=== PATIENT | female | born 1945 | race Caucasian/White ===

== ENCOUNTER 2019-08-16 12:39 | Outpatient (CLI) | payer MEDICARE, OTHER, SELFPAY ==
--- NOTE | ~2019-08-16 | NM_ITS ---
EXAMINATION: NM parathyroid w imaging DATE: 08/16/2019 15:46 INDICATION: Hypercalcemia. TECHNIQUE: 20.7 mCi Tc99m sestamibi was administered intravenously. Anterior images of the neck were obtained immediately and at 2 hours. SPECT images of the neck were obtained. COMPARISON: Chest CT 07/02/2015 FINDINGS: There is no focus of persistent activity in the area of the thyroid or mediastinum to sugge st parathyroid adenoma. IMPRESSION: 1. No evidence of a parathyroid adenoma. Reviewed, dictated and finalized at location A. O CALLER
== END 2019-08-16 12:40 | disposition home or self-care (01) ==
LOC: ANHIMG 12:42
PROVIDERS: PCP Family Medicine; Visit Provider Internal Medicine Endocrinology, Diabetes & Metabolism
DX: E83.52 Hypercalcemia (principal)
CPT/HCPCS: 78070; A9500

== ENCOUNTER 2019-08-28 16:37 | Inpatient (IN) | payer MEDICARE, OTHER, SELFPAY ==
[2019-08-28 16:41] VITALS: BP 151/86; PULSE 119; RESP 21; TEMP 36.4; O2SAT 100
[2019-08-28 16:57] LABS: Basophils Absolute Auto 0.1 K/mm3 (0.0-0.1); Basophils Percent Auto 0.8 % (0.2-1.2); Eosinophils Absolute Auto 0.5 K/mm3 (0-0.3); Eosinophils Percent Auto 3.3 % (0-4.4); Hematocrit 31.1 % (37.0-47.0); Hemoglobin 9.6 g/dL (12.0-15.0); Immature Granulocyte Absolute 0.16 K/mm3 (0.00-0.031); Immature Granulocyte Percent A 1.1 % (0-0.5); Lymphocytes Absolute Auto 3.38 K/mm3 (0.9-3.2); Lymphocytes Percent Auto 22.5 % (18.3-44.2); Mean Corpuscular HGB Conc 30.9 g/dl (32-36); Mean Corpuscular Hemoglobin 29.2 pg (26-34); Mean Corpuscular Volume 94.5 fl (80-100); Mean Platelet Volume 10.5 fl (7.4-10.4); Monocytes Absolute Auto 1.1 K/mm3 (0.1-0.6); Monocytes Percent Auto 7.1 % (2.6-8.5); Neutrophils Absolute Auto 9.8 K/mm3 (1.3-6.7); Neutrophils Percent Auto 65.2 % (45.5-73.1); Platelet Count Result 483 k/mm3 (150-375); Red Blood Count 3.29 M/mm3 (4.2-5.4); Red Cell Distribution Width 15.7 % (11.5-14.5)
[2019-08-28 17:06] LABS: INR 0.9; Prothrombin Time 12.1 Seconds (11.1-14.7)
[2019-08-28 17:07] LABS: Partial Thromboplastin Time 35.2 SECONDS (22.3-36.8)
[2019-08-28 17:12] LABS: Alanine Aminotransferase 13 U/L (4-35); Albumin Level 4.2 g/dL (3.5-5.1); Alkaline Phosphatase 49 U/L (38-126); Aspartate Amino Transferase 33 U/L (14-36); Bilirubin,Total 0.3 mg/dL (0.2-1.3); Blood Urea Nitrogen 22 mg/dL (7-17); Calcium 10.1 mg/dL (8.4-10.2); Carbon Dioxide 26 mmol/L (22-30); Chloride 102 mmol/L (98-107); Estimated CRCL calculation 61 ml/min; Estimated Glomerular Filt Rate > 60; Glucose 110 mg/dL (65-105); Potassium 3.2 mmol/L (3.4-5.0); Sodium 142 mmol/L (137-145)
--- NOTE | 2019-08-28 17:16 | ED.GENADULT ---
HPI - General Adult General Chief complaint: Nausea/Vomiting/Diarrhea Stated complaint: Black Stool Time Seen by Provider: 08/28/19 16:39 History of Present Illness HPI narrative: Patient is a 74-year-old female who presents the ER with weakness and dark stools. Last dark stool was 4 days ago. She has been feeling more fatigued over the last week. Today she developed dizziness when going from sitting to standing. She is not on any blood thinners but she does take a baby aspirin daily. No increase in acid reflux symptoms. She has no nausea/vomiting. Has a history of GI bleed in the past that required blood transfusion. No alleviating factors. She has not been taking iron or Pepto-Bismol. Related Data Home Medications Medication Instructions Recorded Confirmed acetaminophen 650 mg 650 mg PO Q12H 07/09/19 07/12/19 tablet,extended release aspirin 81 mg tablet,delayed 81 mg PO DAILY 07/09/19 07/12/19 release benzonatate 100 mg capsule 100 mg PO BID 07/09/19 07/12/19 carbidopa 25 mg-levodopa 100 mg 2 tablet PO BID 07/09/19 07/12/19 tablet vit C,E,zinc,copper-bqnzt5y 250 1 cap PO DAILY 07/09/19 07/12/19 mg-lutein 5 mg-zeaxanthin 1 mg capsule diclofenac sodium PO 08/28/19 Allergies Allergy/AdvReac Type Severity Reaction Status Date / Time hydroxyurea Allergy Intermediate Dizziness Verified 08/28/19 18:33 allopurinol Allergy Unknown Anaphylactic Verified 08/28/19 18:33 Shock Review of Systems Review of Systems: All systems reviewed & are unremarkable except as noted in HPI and below Constitutional: Constitutional: Denies chills, Reports fatigue, Denies fever(s) and Reports weakness ENT: Denies vertigo, Reports dizziness and Denies sore throat Cardiovascular: Cardiovascular: Denies chest pain and Denies rapid heart rate Respiratory: Respiratory: Denies cough, Denies dyspnea and Denies wheezing Gastrointestinal: Gastrointestinal: Denies abdominal pain, Reports constipation, Denies heartburn, Denies nausea and Denies vomiting Comments: black stools Neurologic: Reports dizziness, Denies syncope and Denies headache(s) [facility] Past Medical History Medical History (Updated 08/28/19 @ 19:40 by Dean Agrawal MD) Arthritis Back pain Cataracts, bilateral COPD (chronic obstructive pulmonary disease) Depressed Hypertension Obesity Thrombocytosis Thyroid disease Visual loss Surgical History Surgical History (Updated 08/28/19 @ 17:22 by Dean Agrawal MD) History of hysterectomy Family History Family History (Updated 07/09/19 @ 13:35 by Daniela Alford CMA) Other Acute leukemia Cerebrovascular accident Prostate disease Social History Social History Smoking status: Former smoker Second hand tobacco smoke exposure: No Smoking end date: 07/18/90 Alcohol intake: current Gender identity (if verbalized by the patient): Female Exam Narrative: Exam Narrative: GENERAL: Well-appearing, well-nourished, and in no acute distress. HEAD: Normocephalic, atraumatic. EYES: PERRL and EOMI. right eye strabismus. Normal conjunctiva. ENT: Mucous membranes moist. CHEST: Clear to auscultation. No respiratory distress. HEART: Tachycardic and regular. Normal peripheral pulses. ABDOMEN: Soft, nontender, nondistended, heme positive stool on guaiac. EXTREMITIES: Normal range of motion. No edema. SKIN: Warm, dry, no rash. NEURO: Alert and oriented x3. Course Course Emergency Course: Admit for obs, will consult Dr. Larose in the morning who has see her in the past. Trend h/h. Vital Signs Vital signs: Vital Signs Temperature 97.6 F 08/28/19 16:41 Pulse Rate 119 H 08/28/19 16:41 Respiratory Rate 21 H 08/28/19 16:41 Blood Pressure 151/86 H 08/28/19 16:41 Pulse Oximetry 100 08/28/19 16:41 Temperature 98.1 F 08/28/19 18:41 Pulse Rate 80 08/28/19 18:41 Respiratory Rate 14 08/28/19 18:41 Blood Pressure 121/67 08/28/19 18:41 Pulse Oximetry 99 0
[2019-08-28] MEDS: SODIUM CHLORIDE 0.9% IV 1,000 ML 999 ML IV CONT (18:12)
[2019-08-28 18:15] VITALS: BP 113/60; BP 120/80; PULSE 103; PULSE 84
[2019-08-28 18:17] VITALS: BP 124/72; PULSE 110
[2019-08-28 18:41] VITALS: BP 121/67; PULSE 80; RESP 14; TEMP 36.7; O2SAT 99
[2019-08-28 20:25] VITALS: BP 131/74; PULSE 84; RESP 14; TEMP 36.3; O2SAT 100; BMI 37.1
[2019-08-28 20:57] LABS: Hemoglobin 9.7 g/dL (12.0-15.0)
[2019-08-28 22:00] VITALS: BP 123/67; PULSE 80; RESP 14; TEMP 36.9; O2SAT 98
--- NOTE | 2019-08-28 23:00 | PM.IMHP ---
H&P: HPI History of Present Illness Chief complaint: Dark stool and dizziness. Narrative: Leann Mccauley is a very pleasant 74-year-old female with history of GI bleed due to gastric ulcer who presented to the emergency department earlier this afternoon via private vehicle from home for evaluation after a dark stool 4 days ago and dizziness. Her bowels are typically irregular, and she notes having a large loose, dark stool 4 days ago after several days of not having a bowel movement. She has not had a bowel movement since that time, but has noticed increasing lightheadedness and dizziness upon standing and walking. She had similar symptoms with her previous gastric ulcer, and felt it would be best to come in today due to continued lightheadedness. It is noted that her hemoglobin on routine outpatient labs last month was 14.5, and was 9.6 on presentation to the ER today. She has not had symptoms of indigestion or GERD. No abdominal or epigastric discomfort. She denies nausea and vomiting. She does take diclofenac once a day for her arthritic pain, and also takes a baby aspirin daily. She does not take iron supplementations and has not taken Pepto-Bismol. She tries to drink non caffeinated beverages. She rarely drinks alcohol. Review of Systems Review of Systems: Narrative: Twelve systems were reviewed with pertinent positives and negatives as per HPI. No fever, chills, or sweats. No recent cold or flu-like symptoms. She had always has clear rhinorrhea, and that is unchanged. She suffers from osteoarthritic pain, mainly in her back and knees and that is why she takes the diclofenac. Except as documented, all other systems were reviewed and are negative. [facility] Past Medical History Medical History (Updated 08/29/19 @ 01:44 by Genesis Mendez PA-C) Arthritis Back pain Cataracts, bilateral COPD (chronic obstructive pulmonary disease) Depression Gastric ulcer In November 2002. Hypertension No longer requiring medication. Hypothyroidism Obstructive sleep apnea Restless leg syndrome Thrombocytosis Treated by Dr. White. She was on allopurinol and hydroxyurea but developed anaphylactic shock attributed to those medications in March 2019. 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 Surgical History Surgical History (Updated 08/29/19 @ 01:41 by Genesis G. Gerling, PA-C) Status post eye surgery Right eye surgery at the age of 13 after a sinus infection eroded into the orbit. Status post tubal ligation Family History Family History Other Acute leukemia Cerebrovascular accident Prostate disease Social History Social History (Updated 08/29/19 @ 01:42 by Genesis Mendez PA-C) Social History: The patient is single and lives in [place]. She was for about 3 years many years ago. She does have a cat that lives at home with her named Macrina. She has no children. She designates her brother Bill or her cousin Bronson as her surrogate decision makers and she wishes to be a full code. 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 She smokes 1 to 1.5 packs of cigarettes per day and quit in 1990. No alcohol or drug abuse. Spiritual care concerns: No Agree to blood products: Yes Meds Home Medications and Allergies Home Medications Medication Instructions Recorded Confirmed Type acetaminophen 650 mg 650 mg PO Q6-8H PRN 07/09/19 08/28/19 History tablet,extended release aspirin 81 mg tablet,delayed 81 mg PO DAILY 07/09/19 07/12/19 History release benzonatate 100 mg capsule 100 mg PO BID PRN 07/09/19 07/12/19 History carbidopa 25 mg-levodopa 100 mg 2 tablet PO HS 07/09/19 08/28/19 History tablet vit C,E,zinc,copper-bykag1z 250 1 cap PO DAILY 07/09/19 07/12/19 History mg-lutein 5 mg-zeaxanthin 1 mg capsule levothyroxine 75 mcg tablet 75 mcg PO DAILY #9
[2019-08-29] VITALS (9 sets, daily range): BP systolic 131–148; BP diastolic 66–81; PULSE 70–90; RESP 16–18; TEMP 36.6–37.3; O2SAT 95–96
--- NOTE | 2019-08-29 00:05 | ADMGEN ---
This patient, Leann Mccauley, was admitted to 3 [facility] Surg Room 330-01. Patient/family oriented to hospital policies and general routines including ID bracelet, bed and alarms, visiting hours, pain management, procedures, bathroom and other care routines, personal items, smoking policy, room service/diet, and visiting hours. Valuables list has been completed. Information on how to activate the Rapid Response Team has been discussed. Patient/Family are encouraged to report perceived risks to care and to ask questions if they do not understand what they are told or what they should do.
[2019-08-29] MEDS: SODIUM CHLORIDE 0.9% IV 1,000 ML 125 ML IV CONT (00:17)
[2019-08-29 00:40] LABS: Hematocrit 26.7 % (37.0-47.0); Hemoglobin 8.4 g/dL (12.0-15.0); Mean Corpuscular HGB Conc 31.5 g/dl (32-36); Mean Corpuscular Hemoglobin 29.3 pg (26-34); Mean Platelet Volume 10.6 fl (7.4-10.4); Platelet Count Result 382 k/mm3 (150-375); Red Blood Count 2.87 M/mm3 (4.2-5.4); Red Cell Distribution Width 15.9 % (11.5-14.5); White Blood Count 11.4 K/mm3 (4.5-10.0)
[2019-08-29 00:45] LABS: Blood Urea Nitrogen 17 mg/dL (7-17); Calcium 9.4 mg/dL (8.4-10.2); Carbon Dioxide 25 mmol/L (22-30); Chloride 106 mmol/L (98-107); Estimated CRCL calculation 62 ml/min; Estimated Glomerular Filt Rate > 60; Glucose 91 mg/dL (65-105); Potassium 3.4 mmol/L (3.4-5.0); Sodium 141 mmol/L (137-145)
[2019-08-29] MEDS: CARBIDOPA/LEVODOPA 25/100 MG TABLET 2 TABLET PO ×2 (02:47→19:56)
[2019-08-29] MEDS: ATORVASTATIN 10 MG TABLET PO ×2 (02:48→19:55)
[2019-08-29] MEDS: LEVOTHYROXINE SODIUM 75 MCG TABLET PO (06:29)
[2019-08-29 06:36] LABS: Hematocrit 25.9 % (37.0-47.0)
[2019-08-29] MEDS: OPTI-GEN TAB 1 TABLET PO (09:21)
[2019-08-29] MEDS: PANTOPRAZOLE SODIUM IV 40 MG VIAL IV PUSH ×2 (09:21→19:59)
[2019-08-29] MEDS: POTASSIUM CHLORIDE 20 MEQ TABLET 40 MEQ PO (09:21)
[2019-08-29] MEDS: VENLAFAXINE HCL XR 75 MG CAP.ER.24H 225 MG PO (09:21)
--- NOTE | 2019-08-29 11:07 | WPDGICN ---
Assessment and Plan Additional Plan This is a 74-year-old white female patient mass see for GI bleeding. Patient reports she was in her usual state of health till Tuesday when she felt somewhat lightheaded. On Tuesday she passed a dark melenic stool. Because of persistent lightheadedness she presented to the emergency room yesterday for evaluation. She was bout found to be anemic with a hemoglobin of 8 in July her hemoglobin had been normal at 14. Patient denies any abdominal pain. She reports having a prior gastric ulcer in 2012. She did experience melenic stools 1 year ago in EGD revealed distal esophageal web. At that time Patient's recent history is significant for slightly elevated platelet count was briefly on Hydrea. Past medical history is significant for chronic back pain and knee pain for which she takes diclofenac. She also has a history of depression. Gastric ulcer in 2012, hypertension, hypothyroidism, sleep apnea. Family history is noncontributory. Social history she denies alcohol use. Physical exam reveals her to be alert. Vital signs stable. HEENT exam unremarkable. She is anicteric. Lungs are clear to auscultation and percussion. Heart is without murmur or extra sounds. Abdominal exam bowel sounds present soft nontender with no hepatosplenomegaly. Stool in the emergency room is confirmed to be Hemoccult positive. Laboratory reports on presentation to 11 hemoglobin 9.6 hematocrit 31.1, this morning hemoglobin 8.0 hematocrit 25.9. Impression 1. GI bleeding. 2. Melenic stools. Suggests the GI bleeding is upper GI source. Patient does have a history of gastric ulcer and recently has been on diclofenac. 3. Chronic back pain. 4. COPD. Plan is for IV rehydration. Maintain patient on proton pump inhibitor. This may be required particularly if she requires arthritis medications. An EGD will be planned in the morning. Hemoglobin will be monitored closely in the antrum. GI Consult Note Consult date/time: 08/29/19 11:07 HPI: Leann Mccauley is a 74 year old female [facility] Past Medical History Medical History (Updated 08/29/19 @ 01:44 by Genesis Mendez PA-C) Arthritis Back pain Cataracts, bilateral COPD (chronic obstructive pulmonary disease) Depression Gastric ulcer In November 2002. Hypertension No longer requiring medication. Hypothyroidism Obstructive sleep apnea Restless leg syndrome Thrombocytosis Treated by Dr. White. She was on allopurinol and hydroxyurea but developed anaphylactic shock attributed to those medications in March 2019. 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 Surgical History Surgical History (Updated 08/29/19 @ 01:41 by Genesis Mendez PA-C) Status post eye surgery Right eye surgery at the age of 13 after a sinus infection eroded into the orbit. Status post tubal ligation Family History Family History Other Acute leukemia Cerebrovascular accident Prostate disease Social History Social History (Updated 08/29/19 @ 01:42 by Genesis Mendez PA-C) Social History: The patient is single and lives in [place]. She was for about 3 years many years ago. She does have a cat that lives at home with her named Macrina. She has no children. She designates her brother Bill or her cousin Bronson as her surrogate decision makers and she wishes to be a full code. 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 She smokes 1 to 1.5 packs of cigarettes per day and quit in 1990. No alcohol or drug abuse. Spiritual care concerns: No Agree to blood products: Yes Meds Home Medications and Allergies Home Medications Medication Instructions Recorded Confirmed Type acetaminophen 650 mg 650 mg PO Q6-8H PRN 07/09/19 08/28/19 History tablet,extended release aspirin 81 mg tablet,delayed 81 mg PO DAILY 12
[2019-08-29 14:04] LABS: Hematocrit 26.1 % (37.0-47.0); Hemoglobin 8.1 g/dL (12.0-15.0)
--- NOTE | 2019-08-29 15:38 | PM.IMPN ---
Progress Note: A&P Assessment and Plan (1) GI bleed: Code(s): K92.2 - Gastrointestinal hemorrhage, unspecified Status: Acute Assessment and Plan: Per ED physician, stool was Hemoccult positive. Presumed upper GI bleed given reports of melena. Will continue Protonix twice daily given her history of gastric ulcer. Hold aspirin and diclofenac. Dr. Larose following and appreciate recommendations (2) Restless leg syndrome: Code(s): G25.81 - Restless legs syndrome Status: Acute Assessment and Plan: Continue carbidopa levodopa. (3) Hypothyroidism: Code(s): E03.9 - Hypothyroidism, unspecified Status: Acute Assessment and Plan: Continue levothyroxine. (4) Arthritis: Code(s): M19.90 - Unspecified osteoarthritis, unspecified site Status: Acute Assessment and Plan: Hold diclofenac given GI bleed. Subjective Date/time seen: 08/29/19 15:38 Interval history: Patient is a 74 yo F with history of previous GI bleed due to gastric ulcer who is here for another GI bleed. Today, patient states she is feeling okay. She had a slight headache today but she relates this to not sleeping that much last night. No BM today but notes she will likely have one this evening. She has no other complaints. Denies f/c/ns, dizziness, lightheadedness, changes in v/h, cp/palpitations, sob/cough, n/v/d/c, abd pain, dysphagia, melena, brbpr, dysuria, hematuria, cloudy urine, calf pain/swelling, s/sx of stroke. Review of Systems Review of Systems: All systems reviewed & are unremarkable except as noted in HPI and below Exam Narrative: Exam Narrative: Patient lying in semi-fowlers position at time of visit Const: General: comfortable, no acute distress, well developed and alert Nutritional Appearance: obese Orientation/consciousness: patient oriented x3 HENMT: Head: normocephalic and atraumatic Ears: external ears normal General nose exam: Normal nares present Face and sinus: face symmetric Mouth: Yes tongue normal and Yes moist mucous membranes Teeth and gingiva: fair dentition Throat: posterior oropharynx normal and uvula midline Eyes: Sclera: sclerae normal Pupils: Equal, round and reactive pupils present EOM: EOMs intact bilaterally Neck: Neck: trachea midline, supple and no JVD Resp: Effort & Inspection: normal respiratory effort Auscultation: wheezes expiratory wheezes (mild scattered wheezes) Cardio: Rate: regular rate Rhythm: regular rhythm Heart sounds: no murmurs GI: Inspection: non-distended and obesity GI Palp: No abdominal tenderness Auscultation: normal bowel sounds and normoactive bowel sounds Skin: General skin exam: normal color and no rashes or lesions noted Neuro: General: patient oriented x3 and no focal motor deficits Speech: normal speech Motor exam (neuro): 5/5 motor strength present throughout Extrem: Right lower extremity: no edema Left lower extremity: no edema Other: no calf ttp/swelling Psych: Mental Status: mental status grossly normal Affect: normal affect Objective Data Vital Signs Vital Signs: Vital Signs - 24 hr 08/28/19 16:41 08/28/19 18:15 08/28/19 18:17 Temperature 97.6 F Pulse Rate 119 H 103 H 110 H Respiratory Rate 21 H Blood Pressure 151/86 H 120/80 124/72 Pulse Oximetry 100 08/28/19 18:41 08/28/19 20:25 08/28/19 22:00 Temperature 98.1 F 97.3 F L 98.4 F Pulse Rate 80 84 80 Respiratory Rate 14 14 14 Blood Pressure 121/67 131/74 123/67 Pulse Oximetry 99 100 98 08/29/19 00:00 08/29/19 04:00 08/29/19 06:00 Temperature 99.1 F Pulse Rate 80 78 90 Respiratory Rate 16 Blood Pressure 131/66 Pulse Oximetry 95 08/29/19 08:00 08/29/19 12:00 08/29/19 14:00 Temperature 97.8 F Pulse Rate 80 70 72 Respiratory Rate 18 Blood Pres
[2019-08-30] VITALS (12 sets, daily range): BP systolic 75–157; BP diastolic 47–86; PULSE 58–90; RESP 16–19; TEMP 36.4–36.7; O2SAT 95–99
[2019-08-30 06:07] LABS: Hematocrit 25.1 % (37.0-47.0); Mean Corpuscular HGB Conc 31.9 g/dl (32-36); Mean Corpuscular Hemoglobin 29.4 pg (26-34); Mean Corpuscular Volume 92.3 fl (80-100); Mean Platelet Volume 10.7 fl (7.4-10.4); Platelet Count Result 351 k/mm3 (150-375); Red Blood Count 2.72 M/mm3 (4.2-5.4); Red Cell Distribution Width 15.9 % (11.5-14.5); White Blood Count 10.1 K/mm3 (4.5-10.0)
[2019-08-30 06:31] LABS: Blood Urea Nitrogen 10 mg/dL (7-17); Calcium 9.6 mg/dL (8.4-10.2); Carbon Dioxide 25 mmol/L (22-30); Chloride 104 mmol/L (98-107); Estimated CRCL calculation 62 ml/min; Estimated Glomerular Filt Rate > 60; Glucose 84 mg/dL (65-105); Magnesium 1.9 mg/dL (1.6-2.3); Potassium 3.6 mmol/L (3.4-5.0); Sodium 138 mmol/L (137-145)
[2019-08-30] MEDS: OPTI-GEN TAB 1 TABLET PO (08:21)
[2019-08-30] MEDS: VENLAFAXINE HCL XR 75 MG CAP.ER.24H 225 MG PO (08:21)
[2019-08-30] MEDS: LEVOTHYROXINE SODIUM 75 MCG TABLET PO (08:22)
[2019-08-30] MEDS: PANTOPRAZOLE SODIUM IV 40 MG VIAL IV PUSH (08:22)
[2019-08-30] MEDS: LACTATED RINGERS 1,000 ML 150 ML IV CONT (11:08)
--- NOTE | 2019-08-30 11:13 | PC.NURSE ---
To GI Lab per [ stretcher], IV [saline locked ]
--- NOTE | 2019-08-30 11:48 | WPDANESEPPF ---
Anes - Initial Pre Proc Eval Procedure: Operation Date: 08/30/19 11:30 Proposed Procedures p Esophagogastroduodenoscopy - Yoandy Larose MD Date/Time: 08/30/19 11:48 Surgeon: Renny Mendieta PA-C Pre Op Diagnosis: Dark stool and dizziness. Patient Data Age: 74 Gender: F Height: 5 ft 4 in Weight: 98.2 kg Last Vital Signs Temp 97.5 F L 08/30/19 11:09 Pulse 66 08/30/19 11:09 Resp 16 08/30/19 11:09 BP 132/66 08/30/19 11:09 Pulse Ox 98 08/30/19 11:09 Allergies Allergy/AdvReac Type Severity Reaction Status Date / Time hydroxyurea Allergy Intermediate Dizziness Verified 08/28/19 18:33 allopurinol Allergy Unknown Anaphylactic Verified 08/28/19 18:33 Shock Home Medications Medication Instructions Recorded Confirmed Type acetaminophen 650 mg 650 mg PO Q6-8H PRN 07/09/19 08/28/19 History tablet,extended release aspirin 81 mg tablet,delayed 81 mg PO DAILY 07/09/19 07/12/19 History release benzonatate 100 mg capsule 100 mg PO BID PRN 07/09/19 07/12/19 History carbidopa 25 mg-levodopa 100 mg 2 tablet PO HS 07/09/19 08/28/19 History tablet vit C,E,zinc,copper-shebg2e 250 1 cap PO DAILY 07/09/19 07/12/19 History mg-lutein 5 mg-zeaxanthin 1 mg capsule levothyroxine 75 mcg tablet 75 mcg PO DAILY #90 tablet 07/10/19 08/28/19 Rx atorvastatin 10 mg tablet 10 mg PO .QHS #90 tablet 08/06/19 08/28/19 Rx venlafaxine 225 mg tablet,extended 225 mg PO DAILY #90 tablet 08/20/19 08/28/19 Rx release 24 hr diclofenac sodium PO DAILY 08/28/19 History Laboratory Tests 08/29/19 08/30/19 08/30/19 13:29 05:35 05:35 WBC 10.1 K/mm3 H K/mm3 (4.5-10.0) RBC 2.72 M/mm3 L M/mm3 (4.2-5.4) Hgb 8.1 g/dL L g/dL 8.0 g/dL L g/dL (12.0-15.0) (12.0-15.0) Hct 26.1 % L % 25.1 % L % (37.0-47.0) (37.0-47.0) MCV 92.3 fl fl (80-100) MCH 29.4 pg pg (26-34) MCHC 31.9 g/dl L g/dl (32-36) RDW 15.9 % H % (11.5-14.5) Plt Count 351 k/mm3 k/mm3 (150-375) MPV 10.7 fl H fl (7.4-10.4) Sodium 138 mmol/L mmol/L (137-145) Potassium 3.6 mmol/L mmol/L (3.4-5.0) Chloride 104 mmol/L mmol/L (98-107) Carbon Dioxide 25 mmol/L mmol/L (22-30) BUN 10 mg/dL D mg/dL (7-17) Creatinine 0.80 mg/dL mg/dL (0.7-1.0) Estim Creat Clear Calc 62 ml/min ml/min Estimated GFR > 60 (59 - ) Glucose 84 mg/dL mg/dL (65-105) Calcium 9.6 mg/dL mg/dL (8.4-10.2) Magnesium 1.9 mg/dL mg/dL (1.6-2.3) Patient hx anesthesia problems: none Family hx anesthesia problems: none [facility] Past Medical History Medical History (Updated 08/29/19 @ 01:44 by Genesis Mendez PA-C) Arthritis Back pain Cataracts, bilateral COPD (chronic obstructive pulmonary disease) Depression Gastric ulcer In November 2002. Hypertension No longer requiring medication. Hypothyroidism Obstructive sleep apnea Restless leg syndrome Thrombocytosis Treated by Dr. White. She was on allopurinol and hydroxyurea but developed anaphylactic shock attributed to those medications in March 2019. 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 Surgical History Surgical History (Updated 08/29/19 @ 01:41 by Genesis Mendez PA-C) Status post eye surgery Right eye surgery at the age of 13 after a sinus infection eroded into the orbit. Status post tubal ligation Family History Family History Other Acute leukemia Cerebrovascular accident Prostate disease Social History Social History (Updated 08/29/19 @ 01:42 by Genesis Mendez PA-C) Social History: The patient is single and lives in [place]. She was for about 3 years many years ago. She does have a cat that lives at
[2019-08-30] MEDS: BENZOCAINE (*SP) 60 ML SPRAY CAN (HURRICAINE) 1 SPRAY MUCOUS MEM (12:20)
--- NOTE | 2019-08-30 13:32 | PC.NURSE ---
Returned from GI Lab.
--- NOTE | 2019-08-30 16:19 | PM.DS ---
DS: Diagnosis Admitting Diagnosis Admitting Diagnosis: Gastrointestinal hemorrhage, unspecified Discharge Diagnosis (1) GI bleed: Code(s): K92.2 - Gastrointestinal hemorrhage, unspecified Status: Acute Assessment and Plan: Per ED physician, stool was Hemoccult positive. Presumed upper GI bleed given reports of melena. Patient had EGD today per Dr. Larose with reports of acute benign appearing ulcer found in prepyloric area. Hgb is stable at 8.0 today Hold aspirin and diclofenac until further recommendations from PCP/GI Will have her follow up with CBC in 2 days to ensure this is stable Will discharge on Protonix 40 mg daily per GI recommendations Dr. Larose following and appreciate recommendations (2) Restless leg syndrome: Code(s): G25.81 - Restless legs syndrome Status: Acute Assessment and Plan: Continue carbidopa levodopa. (3) Hypothyroidism: Code(s): E03.9 - Hypothyroidism, unspecified Status: Acute Assessment and Plan: Continue levothyroxine. (4) Arthritis: Code(s): M19.90 - Unspecified osteoarthritis, unspecified site Status: Acute Assessment and Plan: Hold diclofenac given GI bleed. (5) Normocytic anemia: Code(s): D64.9 - Anemia, unspecified Status: Acute Assessment and Plan: Very likely related to acute GI blood loss suspected. Hgb stabilized to 8.0 on day of discharge. Follow up with CBC in 2 days from discharge DS: Summary Hospital Course Reason for hospitalization: Acute GI bleed, likely upper GI Hospital Course: Patient is a 74 yo F with a history of GI bleed due to gastric ulcer who presented to the emergency department earlier on 08/28 via private vehicle from home for evaluation after a dark stool 4 days prior to arrival and dizziness. Patient had loose, dark stool 4 days prior to arrival after having several days of not having a BM. She did not have a BM since that time; she did notice increased lightheadedness/dizziness when standing/walking. Her symptoms were similar to previous gastric ulcer diagnosis. She was noted to be acutely anemic while in the ER with a Hgb of 9.6, down from 14.5 from the month prior. Patient had significant NSAID use with diclofenac for OA. Please see H&P for further details. Presenting VS: BP 151/86, HR 119, RR 21, temp 97.6, sat 100% RA Presenting Pertinent labs: WBC 15.0 (08/30 10.1), H&H 9.6/31.1 (08/30 8.0/25.1), plt 483, MCV 94.5, K 3.2. CBC, CMP, coags otherwise unremarkable Micro: none Imaging/procedure: 08/30 EGD Acute gastric ulcer; no sign of bleeding from the ulcer ECG: none Patient was admitted to the hospitalist service for further evaluation of likely upper GI bleed; Dr. Larose (GI) was consulted for further input/management. Patient was started on protonix BID. Aspirin and diclofenac were held. Patient went for EGD on 08/[address] Larose which, as stated above, showed acute gastric ulcer without a sign of bleeding from the ulcer. Her H&H was monitored and Hgb stabilized to roughly 8.0 on day of discharge. Her symptoms had also improved by day of discharge. K was replaced as needed. Patient was to be discharged home on 08/30 with instructions to follow up with a CBC within 2 days of discharge to monitor Hgb. Patient was to also hold ASA and diclofenac per recommendations from GI until she had further recommendations from PCP. Patient to be discharged on daily Protonix. She was to follow up with PCP within 1-2 weeks from discharge. Heart healthy/bland diet was recommended. Patient was hemodynamically stable and in improved clinical condition for discharge on 08/30. Status at Discharge Overall status at discharge: patient is progressing back to baseline Time Spent with Patient Time atte
== END 2019-08-30 17:15 | disposition home or self-care (01) | DRG 378 ==
LOC: ANHED 19:40 → ANH3MEDSUR 19:53
PROVIDERS: Internal Medicine Gastroenterology; Physician Assistant; Admitting Provider Family Medicine; Emergency Provider Emergency Medicine; PCP Family Medicine; Visit Provider Family Medicine
PROC: 0DJ08ZZ Inspection of Upper Intestinal Tract, Via Natural or Artificial Opening Endoscopic (ICD-10-PCS; CPT 43235; principal; 2019-08-30 11:30)
DX: K25.0 Acute gastric ulcer with hemorrhage (principal); D62 Acute posthemorrhagic anemia; M19.90 Unspecified osteoarthritis, unspecified site; H26.9 Unspecified cataract; J44.9 Chronic obstructive pulmonary disease, unspecified; F32.9 Major depressive disorder, single episode, unspecified; I10 Essential (primary) hypertension; E03.9 Hypothyroidism, unspecified; G47.33 Obstructive sleep apnea (adult) (pediatric); G25.81 Restless legs syndrome; H54.40 Blindness, one eye, unspecified eye; Z87.891 Personal history of nicotine dependence; E66.9 Obesity, unspecified; Z68.37 Body mass index [BMI] 37.0-37.9, adult
CPT/HCPCS: 36415; 80048; 80053; 83735; 85014; 85018; 85025; 85027; 85610; 85730; 86850; 86900; 86901; 87081; 96361; 96374; 99285; A9270; C9113; G0378; J2704; J3480; J7030; J7120

== ENCOUNTER 2022-06-03 12:54 | Outpatient (CLI) | payer MEDICARE, SELFPAY ==
--- NOTE | ~2022-06-03 | DEXA_ITS ---
Bone Density Report Name: SANDHYA WILKINS Age: 77 Sex: Female Ethnicity: White Date of : 1945 Indication: osteopenia; height loss; prior fracture; postmenopausal Referring Provider: CHANTAL VYAS Study: Bone densitometry was performed. Exam Date: June 03, 2022 Accession number: [id number] Bone Density: Region BMD T-score Z-score Classification AP Spine(L1-L4) 0.936 -1.0 1.5 Normal Femoral Neck (Left) 0.516 -3.0 -0.9 Osteoporosis Total Hip (Left) 0.668 -2.2 -0.4 Osteopenia Femoral Neck (Right) 0.497 -3.2 -1.0 Osteoporosis Total Hip (Right) 0.614 -2.7 -0.8 Osteoporosis Total Hip Mean 0.641 -2.5 -0.6 Osteopenia World Health Organization criteria for BMD impression classify patients as: Normal (T-score at or above -1.0), Osteopenia (T-score between -1.0 and -2.5), or Osteoporosis (T-score at or below -2.5). 10-year Fracture Risk: FRAX not reported because: Some T-score for Spine Total or Hip Total or Femoral Neck at or below -2.5 Previous Exams: Region Exam Age BMD T-score BMD Change BMD Change Date g/cm2 vs Baseline vs Previous AP Spine (L1-L4) 06/03/2022 77 0.936 -1.0 0.073 (8.5%)# 0.073 (8.5%)# 08/01/2019 74 0.863 -1.7 Total Hip(Left) 06/03/2022 77 0.668 -2.2 -0.142 (-17.6% -0.142 (-17.6% 08/01/2019 74 0.810 -1.1 Total Hip(Right) 06/03/2022 77 0.614 -2.7 -0.138 (-18.4% -0.138 (-18.4% 08/01/2019 74 0.752 -1.6 *Denotes significance at 95% confidence level, LSC for AP Spine = 0.022 g/cm2, LSC for Total Hip = 0.027 g/cm2 # Denotes dissimilar scan types or analysis methods Clinical Information Provided by Patient: Has had a low trauma fracture Patient maximum height was 64 Menopause Age: 46 No regular weight bearing exercise Drinks caffeinated beverages Onset of menses at age 14 Number of children 0 Impression: The patient has established osteoporosis, based on the Right Femoral Neck T-score and the existence of a prior fracture. The patient has risk factors, including: previous fracture. No significant bone loss was observed. Discussion: HIGH RISK OF FRACTURE. BONE DENSITY IS UNDESIRABLY LOW AT ONE OR MORE SKELETAL SITES, CONSISTENT WITH POSTMENOPAUSAL OSTEOPOROSIS. This patient's lowest T-score, in a patient who has previously fractured, meets the World Health Organization's (WHO) criteria for severe osteoporosis. In untreated patients, the risk of osteoporotic fracture increases approximately two-
== END 2022-06-03 12:55 | disposition home or self-care (01) ==
PROVIDERS: PCP Family Medicine; Visit Provider Family Medicine
DX: Z78.0 Asymptomatic menopausal state (principal); M81.0 Age-related osteoporosis without current pathological fracture; M85.852 Other specified disorders of bone density and structure, left thigh; M85.851 Other specified disorders of bone density and structure, right thigh
CPT/HCPCS: 77080

== ENCOUNTER 2022-10-20 00:42 | Day surgery (SDC) | payer MEDICARE, SELFPAY ==
[2022-10-15 13:18] VITALS: BMI 39.8
--- NOTE | 2022-10-15 13:47 | PC.NURSE ---
Report to the Outpatient Waiting Room, entrance under the green pavilion located off [facility], at time __6:00AM on date ___10/20/22____. Planned Procedure Time: __7:30AM . Time changes happen often and if your time is changed the preop area will call you the afternoon before. - You and your visitor will be asked to self-screen and do not enter if you have any COVID symptoms. - Only one visitor is requested with a max of two and NO children visitors are allowed at this time. - The patient visitor may be requested to leave or wait in car when not with patient due to distancing restrictions. - A mask is optional within the hospital at this time. Patients may have clear liquids (water, carbonated beverages, clear teas, apple juice) until 3 hours prior to surgery with a maximum of 20 ounces. - No food from midnight until time of surgery Take the following medications with a SIP of water the morning of surgery: ___LEVOTHYROXINE, SERTRALINE, VENLAFAXINE, ALBUTEROL INHALER NEEDED DO NOT STOP ANY OF YOUR OTHER PRESCRIPTION MEDICATIONS PRIOR TO SURGERY ?EXCEPT THE FOLLOWING Medications to discontinue per physician __HOLD ALL VITAMINS/SUPPLEMENTS 3 DAYS PRE-OP Date to take last dose____10/16/22 Please no make-up, nail kyrgyz, hairspray, perfume, deodorant, or body powder the day of surgery. No jewelry (including any body piercings) or valuables the day of surgery, leave them at home. Please take a shower or bath the night before, or the morning of, surgery with an antibacterial soap. Wear comfortable, loose fitting clothing. Children are encouraged to wear pajamas. - Jewelry must be removed prior to entering the operating room. Rings and piercings that are not removed may be cut off. - The hospital will not accept responsibility for valuables. - Please leave all valuables, including medications, at home the day of surgery. If you are going home after surgery, a licensed rolloff driver must drive you home. - NO public transportation without another adult if you receive anesthesia. - We recommend that an adult stay with you for 24 hours following discharge. - We also recommend that you do not drive, make important decision, drink alcoholic beverages, or take any drugs that were not prescribed by your health care provider for at least 24 hours after your discharge time. Follow any additional instructions given to you from your surgeon. If you or anyone in your household have experienced Covid symptoms in the past week, please notify your surgeon or the nurse liaison at the phone number below for possible testing. Telephone instructions given to __PATIENT and asked if any additional questions and then verbalized understanding. Patient advised to call surgeon office or pre surgery nurse liaison [phone] if any additional questions.
[2022-10-20 06:30] VITALS: BP 154/87; PULSE 87; RESP 16; TEMP 35.9; O2SAT 97
[2022-10-20] MEDS: LACTATED RINGERS 1,000 ML 30 ML IV CONT (06:30)
--- NOTE | 2022-10-20 07:12 | WPDANESEPPF ---
Anes - Initial Pre Proc Eval Procedure: Operation Date: 10/20/22 07:30 Proposed Procedures p Excision of Ulcerated Mass Right Groin With Possible Frozen Section - Quinten Pruett MD Date/Time: 10/20/22 07:12 Surgeon: Quinten Pruett MD Pre Op Diagnosis: ulcerated mass right groin Patient Data Age: 77 Gender: F Height: 1.6 m Weight: 100 kg Last Vital Signs Temp 96.6 F L 10/20/22 06:30 Pulse 87 10/20/22 06:30 Resp 16 10/20/22 06:30 BP 154/87 H 10/20/22 06:30 Pulse Ox 97 10/20/22 06:30 O2 Del Method Room Air 10/20/22 06:30 Allergies Allergy/AdvReac Type Severity Reaction Status Date / Time allopurinol Allergy Severe ANAPHYLAXIS, Verified 10/20/22 06:50 HIVES, LOW HR hydroxyurea Allergy Severe Anaphylaxis Verified 10/20/22 06:50 Home Medications Medication Instructions Recorded Confirmed Type acetaminophen 650 mg 1,300 mg PO Q6-8H PRN Pain 07/09/19 10/15/22 History tablet,extended release (Tylenol Arthritis Pain) aspirin 81 mg tablet,delayed 81 mg PO DAILY 07/09/19 10/20/22 History release (Adult Aspirin Regimen) vit C,E,zinc,copper-qaavo5x 250 1 cap PO DAILY 07/09/19 10/15/22 History mg-lutein 5 mg-zeaxanthin 1 mg capsule (Ocuvite Adult 50 Plus) carbidopa ER 25 mg-levodopa 100 mg 2 tablet PO DAILY #180 tabs 04/21/22 10/15/22 Rx tablet,extended release atorvastatin 10 mg tablet 10 mg PO QHS #90 tabs 07/21/22 10/15/22 Rx benzonatate 100 mg capsule 100 mg PO TID PRN Cough 10/06/22 10/15/22 History pantoprazole 20 mg tablet,delayed 20 mg PO QAM 10/06/22 10/20/22 History release venlafaxine 225 mg tablet,extended 225 mg PO QAM 10/06/22 10/20/22 History release 24 hr albuterol (refill) 90 2 mcg inhalation Q4-6H PRN Dyspnea 10/15/22 10/15/22 History mcg/actuation aerosol inhaler levothyroxine 75 mcg tablet 75 mcg PO QAM 10/15/22 10/20/22 History multivitamin with minerals-folic 1 tablet PO DAILY 10/15/22 10/15/22 History acid 0.4 mg tablet sertraline 50 mg tablet (Zoloft) 50 mg PO QAM 10/15/22 10/20/22 History Patient hx anesthesia problems: none Family hx anesthesia problems: none Results Review: All pre-operative results and documents have been reviewed as part of the pre-operative evaluation. [facility] Past Medical History Medical History Blindness of right eye Cataracts, bilateral Chronic back pain COPD (chronic obstructive pulmonary disease) COPD mixed type Depression Gastric ulcer In November 2002, 08/2019 History of gastric ulcer Hyperlipidemia, unspecified Hypertension No longer requiring medication. Hypothyroidism Obstructive sleep apnea Osteoarthritis Osteoporosis Restless leg syndrome Thrombocytosis Treated by Dr. White. She was on allopurinol and hydroxyurea but developed anaphylactic shock attributed to those medications in March 2019. 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 Surgical History Surgical History Status post eye surgery (~1957) Right eye surgery at the age of 13 after a sinus infection eroded into the orbit. Status post tubal ligation (~1989) Family History Family History Other Acute leukemia Cerebrovascular accident Prostate disease Social History Social History Social History: The patient is single and lives in [place]. She was for about 3 years many years ago. She does have a cat that lives at home with her named Macrina. She has no children. She designates her brother Bill or her cousin Bronson as her surrogate decision makers and she wishes to be a full code. 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 She smokes 1 to 1.5 packs of cigarettes per day and quit in 1990. No alcohol or drug ab
--- NOTE | 2022-10-20 07:23 | WPDHPUPDATE1 ---
History and Physical Update Update Date/Time: 10/20/22 07:23 History and Physical has been reviewed, including an updated exam of the patient. There are NO changes in the patient's condition. Risks, benefits, and alternatives have been discussed and questions answered. Patient agrees to proceed with procedure.
[2022-10-20] MEDS: ceFAZolin 2 GM/D5W 50 ML 2 GM/50 ML BAG IVPB (07:30)
[2022-10-20] MEDS: LIDO 1%/EPINEPHRINE 1:100,000 50 ML VIAL 14 ML INFILTRATE (07:30)
[2022-10-20] MEDS: BACITRACIN OINTMENT 15 GM TUBE 1 APPLIC TOPICAL (08:29)
[2022-10-20 08:50] VITALS: BP 139/66; PULSE 65; RESP 16; O2SAT 96
[2022-10-20 09:20] VITALS: BP 139/66; PULSE 58; RESP 16
[2022-10-20 09:45] VITALS: BP 158/82; PULSE 62; RESP 16
--- NOTE | 2022-10-20 10:09 | W.PM.PROC2 ---
Procedure Note - Detailed Date of Procedure 10/20/22 Pre-op Diagnosis ulcerated mass right groin Post-op Diagnosis Same Procedure Performed 4 cm excision of neoplasm of the right groin for permanent section and 8 cm intermediate repair Surgeon Quinten Pruett MD Anesthesia MAC Indications Friable pigmented mass of the right groin at the right lateral labia majora. Description of Procedure The area of interest was marked on the patient with her consent in the holding area. She then taken to the operating room she was placed supine on the operating table. She was given IV sedation. Her legs were placed in stirrups. The perineal region was prepped and draped in usual fashion. The site was carefully marked with a pen for proximally a 1 cm margin all the way around. Most of this mass is dome shaped red and superficially ulcerated. About 15% of it on the inferior margin is deeply pigmented brown . The incision was carried out and the specimen taken off of the superficial fascia it is at least a cm in thickness as a specimen. It was sent for permanent section. Bleeding points were electrocoagulated. The wound was closed with intradermal 3-0 Vicryl suture at multiple sites approximating the wound margins. The standing cone on the caudal and was taken out this was approximately 1 cm. The skin and was then closed with a running locking 4-0 chromic suture. The site was dressed with bacitracin ointment and a peripad. Estimated Blood Loss 30 Drains No Packing No Pathology Yes Complications No immediate complications Condition Stable Disposition Same day
== END 2022-10-20 10:14 | disposition home or self-care (01) ==
PROVIDERS: PCP Family Medicine; Visit Provider Plastic Surgery
PROC: (CPT 11624; principal; 2022-10-20 07:30)
DX: C51.0 Malignant neoplasm of labium majus (principal); J44.9 Chronic obstructive pulmonary disease, unspecified; E78.5 Hyperlipidemia, unspecified; G47.33 Obstructive sleep apnea (adult) (pediatric); F32.A Depression, unspecified; E03.9 Hypothyroidism, unspecified; M81.0 Age-related osteoporosis without current pathological fracture; M19.90 Unspecified osteoarthritis, unspecified site; G25.81 Restless legs syndrome; H26.9 Unspecified cataract; Z87.891 Personal history of nicotine dependence; E66.01 Morbid (severe) obesity due to excess calories; Z68.39 Body mass index [BMI] 39.0-39.9, adult; Z79.51 Long term (current) use of inhaled steroids; Z79.82 Long term (current) use of aspirin; Z87.11 Personal history of peptic ulcer disease
CPT/HCPCS: 11624; 12044; 88304; 88342; A9270; J0690; J2370; J2704; J7120

== ENCOUNTER 2025-02-05 13:56 | Outpatient (CLI) | payer MEDICARE, SELFPAY ==
--- NOTE | ~2025-02-05 | DEXA_ITS ---
Bone Density Report Name: SANDHYA WILKINS Age: 79 Sex: Female Ethnicity: White Date of : 1945 Indication: postmenopausal osteoporosis; monitoring treatment; height loss; Referring Provider: Jennifer Goodrich Study: Bone densitometry was performed. Exam Date: February 05, 2025 Accession number: [id number] Bone Density: Region BMD T-score Z-score Classification AP Spine(L1-L4) 0.947 -0.9 1.7 Normal Femoral Neck (Left) 0.491 -3.2 -1.0 Osteoporosis Total Hip (Left) 0.729 -1.7 0.3 Osteopenia Femoral Neck (Right) 0.533 -2.9 -0.6 Osteoporosis Total Hip (Right) 0.680 -2.1 -0.2 Osteopenia Total Hip Mean 0.704 -1.9 0.1 Osteopenia World Health Organization criteria for BMD impression classify patients as: Normal (T-score at or above -1.0), Osteopenia (T-score between -1.0 and -2.5), or Osteoporosis (T-score at or below -2.5). 10-year Fracture Risk: FRAX not reported because: Some T-score for Spine Total or Hip Total or Femoral Neck at or below -2.5 Treated for osteoporosis Previous Exams: -- Region Exam Age BMD T-score BMD Change BMD Change Date g/cm2 vs Baseline vs Previous -- AP Spine (L1-L4) 02/05/2025 79 0.947 -0.9 9.8%# 1.2% 06/03/2022 77 0.936 -1.0 8.5%# 8.5%# 08/01/2019 74 0.863 -1.7 Total Hip(Left) 02/05/2025 79 0.729 -1.7 -10.0%# 9.2%* 06/03/2022 77 0.668 -2.2 -17.6%# -17.6%# 08/01/2019 74 0.810 -1.1 Total Hip(Right) 02/05/2025 79 0.680 -2.1 -9.6%# 10.7%# 06/03/2022 77 0.614 -2.7 -18.4%# -18.4%# 08/01/2019 74 0.752 -1.6 -- *Denotes significance at 95% confidence level, LSC for AP Spine = 0.022 g/cm2, LSC for Total Hip = 0.027 g/cm2 # Denotes dissimilar scan types or analysis methods Clinical Information Provided by Patient: Is being treated for osteoporosis Has used the following medications: Prolia (i.e. denosumab), MTV Patient maximum height was 64.0 Menopause Age: 46 No regular weight bearing exercise Drinks caffeinated beverages Onset of menses at age 14 Number of children 0 Impression: The patient has osteoporosis, based on the Left Femoral Neck T-score. Unable to evaluate interval change due to the use of different scan modes. Discussion: PATIENT UNDER TREATMENT WITH NO SIGNIFICANT BMD LOSS SINCE LAST EXAM. In an untreated patient, BMD typically declines with age. A lack of decline or gain is usually a sign that treatment is efficacious and fracture risk is reduced. It is important to ask patients whether they are taking their medications and to encourage continued and appropriate compliance with their osteoporosis therapies to reduce fracture risk. It is also important to review their risk factors and encourage appropriate calcium and vitamin D intakes, exercise, fall prevention and other lifestyle measures. Follow-Up: Consider a repeat BMD and Vertebral Fracture Assessment (VFA) exam in 2 years or sooner if medically necessary, to reassess this patient's status. Reported by: JAYLON on 02/05/2025 3:04:00 PM. Reviewed, dictated and finalized at location A.
== END 2025-02-05 13:57 | disposition home or self-care (01) ==
LOC: MICIMG 13:57
PROVIDERS: PCP Family Medicine; Visit Provider Nurse Practitioner Family
DX: M81.0 Age-related osteoporosis without current pathological fracture (principal); M85.89 Other specified disorders of bone density and structure, multiple sites; Z78.0 Asymptomatic menopausal state
CPT/HCPCS: 77080

== ENCOUNTER 2025-05-07 14:12 | Outpatient (CLI) | payer MEDICARE, SELFPAY ==
--- NOTE | ~2025-05-07 | MM_ITS ---
EXAMINATION: MM screening [facility] BI w veronica HISTORY: Screening TECHNIQUE: Craniocaudal and mediolateral oblique 3-D tomosynthesis images were obtained and synthetic 2-D images were generated. CAD analysis was submitted and interpreted. COMPARISON: 08/21/2010. BREAST PARENCHYMAL COMPOSITION: There are scattered areas of fibroglandular density. FINDINGS: There is no evidence of suspicious mass, calcification, or architectural distortion to suggest malignancy in either breast. Scattered benign-appearing calcifications are present. IMPRESSION: 1. No mammographic evidence of malignancy. 2. Recommend routine screening mammography in one year. BI-RADS Category 2: Benign finding(s). Reviewed, dictated and finalized at location B.
--- OUTSIDE RECORDS SUMMARY | 2025-05-07 17:49 | XMS_ITS | Clinical Summary ---
Author Organization [facility] [employer] Address [address] [place] [address] Care Team Providers Care Forge Operator Helper Name Role Phone Danita Gonzales MD Primary Care Provider Source Comments [facility],non-owned Affiliates and Associated Physician Practices is amultiple site organization consisting of ambulatory clinics and hospital sitesin [place], [place], [place] and [place]. This disclosure is being madepursuant to the Care Everywhere program and may not contain all information available regarding this patient. Last updated 18.[facility] Social History Tobacco Use Types Packs/Day Years Used Date Smoking Tobacco: Never Assessed Comments Unknown Sex and Gender Information Value Date Recorded Sex Assigned at Not on file Legal Sex Female 10:42 AM CDT Gender Identity Not on file Sexual Orientation Not on file Plan of Treatment Health Maintenance Due Date Last Done Comments BONE DENSITY TESTING 1945 DTAP/TDAP/TD VACCINES (1 - Tdap) 1965 PNEUMOCOCCAL VACCINE 50+ (1 of 1 - PCV) 02/28/1996 ZOSTER VACCINE (1 of 2) 02/28/1996 Respiratory Syncytial Virus (RSV) Vaccine Pt: or over 60 yrs (1 - 1-dose 75+ series) 2021 DEPRESSION SCREENING 07/18/2024 COVID-19 VACCINE ( - 2023-2 5 season) 2025 INFLUENZA VACCINE (#1) 2025 HEPATITIS B VACCINE Aged Out No longe r eligible based on patient's age to complete this topic HIB VACCINE Aged Out No longer eligi ble based on patient's age to complete this topic HPV VACCINE Aged Out No longer eligi ble based on patient's age to complete this topic MENINGOCOCCAL (Group B) VACC INE SHARED DECISION-MAKING Aged Out No longer eligibl e based on patient's age to complete this topic MENINGOCOCCAL GROUPS A/C/Y/W VACCINE Aged Out No longer eligible b ased on patient's age to complete this topic Insurance [employer] Care Teams Forge Operator Helper Relationship Specialty Start Date End Date Danita Gonzales MD [address] [place] [address] PCP - General 11/09/22
--- OUTSIDE RECORDS SUMMARY | 2025-05-07 17:49 | XMS_ITS | Clinical Summary ---
Author Organization [facility] Address [address] [place] [address] Care Team Providers Care Flower Stripper Name Role Phone Danita Gonzales MD Primary Care Provider Allergies No known active allergies Medications carbidopa-levod opa (PARCOPA) 25-100 mg Tablet, Rapid Dissolve Take 2 Tablets by mouth daily at bedtime . Active pantoprazole (PROTONIX) 40 mg Tablet, Delayed Release (E.C.) Take 40 mg by mouth daily. Active levothyroxine 75 mcg tablet Take 75 mcg by mouth daily insolvency practitioner. Active Telmisartan-Hyd rochlorothiazid 80-25 mg Tablet Take 1 Tablet by mouth daily . Active atorvastatin (LIPITOR) 10 mg tablet Take 10 mg by mouth daily with supper. Active benzonatate (TESSALON) 100 mg capsule Take 100 mg by mouth 3 times daily as needed . Active folic acid/multivit-m in/lutein (CENTRUM SILVER ORAL) Take 1 Tablet by mouth daily . Active beta-carotene,A ,-vits C,E/mins (OCUVITE ORAL) Take 1 Tablet by mouth daily . Active acetaminophen (TYLENOL ARTHRITIS PAIN ORAL) Take 2 Tablets by mouth every 6 hours as needed for Pain . Active venlafaxine 225 mg Extended Release 24 hour tablet TK 1 T PO QAM AT THE SAME TIME WITH FOOD 2 12/12/2018 Active hydroxyurea (HYDREA) 500 mg capsule Take 1 Capsule (500 mg) by mouth daily. 30 Capsule 4 02/13/2019 Active allopurinoL (ZYLOPRIM) 300 mg tablet Take 1 Tablet (300 mg) by mouth daily. 30 Tablet 4 02/13/2019 Active methylPREDNISol one (MEDROL DOSPACK) 4 mg Tablets, Dose Pack Use as directed 1 Package 03/14/2019 Active Active Problems Problem Noted Date Diagnosed Date Body mass index (BMI) 40.0-44.9, adult 0 Hypercalcemia 10/19/2018 Thrombocytosis 09/18/2018 Family History Medical History Relation Name Comments Leukemia Mother Relation Name Status Comments Father Mother Social History Tobacco Use Types Packs/Day Years Used Date Smoking Tobacco: Former Cigarettes 2 20 0 09/18/1968 - 09/18/1988 Smokeless Tobacco: Never Alcohol Use Standard Drinks/Week Comments Yes 0 (1 standard drink = 0.6 oz pur e alcohol) socially maybe once a month Comments No Sex and Gender Information Value Date Recorded Sex Assigned at Not on file Legal Sex Female 3:34 PM FORENSIC PSYCHIATRIST Gender Identity Not on file Sexual Orientation Not on file Last Filed Vital Signs Vital Sign Reading Time Taken Comments Blood Pressure 136/76 08/09/2019 3:20 PM FORENSIC PSYCHIATRIST Pulse 109 08/09/2019 3:20 PM FORENSIC PSYCHIATRIST Temperature 36.3 C (97.3 F) 08/09/2019 3:20 PM FORENSIC PSYCHIATRIST Respiratory Rate 18 10/19/2018 1:57 PM CDT Oxygen Saturation 94% 08/09/2019 3:20 PM FORENSIC PSYCHIATRIST Inhaled Oxygen Concentration - - Weight 97.4 kg (214 lb 12.8 oz) 08/09/2019 3:20 PM FORENSIC PSYCHIATRIST Height 162.6 cm (5' 4) 08/09/2019 3:20 PM FORENSIC PSYCHIATRIST Body Mass Index 36.87 08/09/2019 3:20 PM FORENSIC PSYCHIATRIST Plan of Treatment Health Maintenance Due Date Last Done Comments DTAP/TDAP/TD VACCINES (1 - Tdap) 1965 PNEUMOCOCCAL VACCINE 50+ YEA RS (1 of 1 - PCV) 02/28/1996 ZOSTER VACCINE (1 of 2) 02/28/1996 RSV VACCINE (60+ or ) (1 - 1-dose 75+ series) 2021 OSTEOPOROSIS SCREENING 08/01/2024 08/01/2019 INFLUENZA VACCINE (#1) 2025 COLORECTAL SCREENING Discontinued 10/12/2018, 10/13/19 19 Colorectal Cancer Screening Discontinued FIT-DNA Q 3 years Discontinued FIT/FOBT Q 1 year Discontinued Flex Sig/CT Colonography Q 5 years Discontinued Procedures Procedure Name Priority Date/Time Associated Diagnosis Comments COLONOSCOPY REPORT Routine 10/12/2018 from Last 3 Months or Most Recently Relevant to Health Maintenance Results * COLONOSCOPY REPORT (10/12/2018) us Abstract Provider GI PROCEDURE ORDERABLES Final Result [facility] from Last 3 Months or Most Recently Relevant to Health Maintenance Insurance MEDICARE PART A AND B [employer] OPEN ACCESS [facility] Address: [facility] [address] [place] [address] Care Teams Flower Stripper Relationship Specialty Start Date End Date Danita Gonzales MD [address] [place] [address] PCP - General Family Practice 09/11/18
--- OUTSIDE RECORDS SUMMARY | 2025-05-07 17:49 | XMS_ITS | Data Portability ---
Author Organization [place] [facility], Main Office Address [address] [place] [address] Care Team Providers Care Framing Consultant Name Role Phone OTILIA YVAS Primary Care Provider [phone] OTILIA VYAS Referring Provider [phone] Assessment Encounter Date Assessment Date Assessment LastModified by Organization Details LastModified Time 10/22/2022 10/22/2022 HPI: Patient returns. She is here for cortisone injections in both her knees. Last injections were 3 months ago. She gets 1 month of excellent relief and then over the course last 2 months symptoms gradually returned. Previous x-rays show moderately severe medial compartment osteoarthritis in both knees. She wishes to continue with injections at this point. Physical exam: 77-year-old female alert pleasant. She is 5 ft 2 and 237 lb her BMI is 43.3. She has mild effusions in both knees. Range of motion is from 0-135 degrees bilaterally. Moderate tenderness over the medial joint lines to palpation. ChloraPrep was used on skin 20 mg Kenalog and 3 cc of 0.5% ropivacaine was injected into both knees. Risk infection discussed. Impression: 77-year-old female with moderately severe medial compartment osteoarthritis in both knees. She continues get some benefit from the injections. Discussed again about weight loss which she needs to decrease her caloric intake. Weight loss can be helpful so that her symptoms less overall for her. She understands and is going try. We will see her back in 3 months repeat injection. 20 minutes was spent in treatment the patient more have this vzoi-[id number] conversation Not available 10/22/2022 11:50:16 01/21/2023 01/21/2023 patient returns. She has been coming in for cortisone injections every 3 months which have continued to be very helpful. She states the cortisone shots 3 months ago have given her the best relief she has had so far until about 1 week ago when both knees started hurting again and she would like cortisone shots in both knees today. On exam today she has range of motion right knee 11/16/2019 left knee 5 and 130. Trace effusion bilaterally. Risks of cortisone shots including risk of infection were discussed. After ChloraPrep prep, 20 mg of Kenalog and 4 cc of 0.5% ropivacaine were injected into each knee without difficulty. I will see her back in 3 months to assess her progress. [email or web address] Not available 01/22/2023 16:18:13 04/22/2023 04/22/2023 HPI: Patient returns. She is here for cortisone injections into both her knees. Last shot was 3 months ago. She got about a month of good relief. She has severe medial compartment osteoarthritis in both knees. She was very active following the last shots which is probably contributing to why the shots in quite as well this time for her. She wished to have injections again today. She is not a surgical candidate due to her weight. Physical exam: 78-year-old female alert pleasant. She has mild effusions in both knees. Range of motion is from 5-130 degrees bilaterally. Mild tenderness over both medial joint lines to palpation. There is no increased swelling in either lower extremity. No pain with patellofemoral grind bilaterally. ChloraPrep used on skin 20 mg Kenalog and 3 cc of 0.5% ropivacaine was injected into both knees. Risk infection discussed. Impression: 78-year-old female who has severe medial compartment osteoarthritis in both knees. She wishes to continue with injections. We will see her in 3 months. Not available 04/22/2023 12:46:27 07/22/2023 07/22/2023 HPI: Patient returns. She is here for cortisone injection both her knees. Last shots were 3 months ago. She gets good relief for little more than 2 months. She has moderately severe medial compartment osteoarthritis in both knees. She is not able take anti-inflammatori es due history of bleeding ulcer. She wished to have additional injections today. Physical exam: 78 old female alert. She walks well without cane. She has mild effusions in knees. Range of motion right knee is from 15-125 and on left that is 7-125. She has moderate tenderness over both medial joint lines to palpation. There is no increased swelling extremity. After ChloraPrep was used on skin 20 mg Kenalog and 3 cc of 0.5% ropivacaine was injected in both knees. Risk of infection discussed. Impression: 78-year-old female who has moderately severe medial compartment osteoarthritis of knees. Shots continue give good benefit. We see her in 3 months repeat injection. Not available 07/22/2023 11:51:29 11/02/2023 11/02/2023 HPI: Patient returns. She is here for cortisone injections in both her knees. Last shots were 3 months ago. She gets about 2 months good relief. She has moderately severe medial compartment osteoarthritis in both knees. She wished to have additional injections today. Physical exam: 78-year-old female alert. She walks well without assistance. She has mild effusions in both knees. Range motion is from 5-135 degrees bilaterally. Jxab-sk-ajxtwdzs tenderness over both medial joint lines to palpation. Trace edema in both lower extremities. After alcohol prep 20 mg Kenalog and 3 cc of 0.5% ropivacaine was injected into both knees. Impression: 78-year-old female with moderately severe medial compartment osteoarthritis in knees. Shots continue to give her good relief. I will see her in 3 months. Not available 11/02/2023 15:48:17 Plan of Treatment Reminders Order Date Submit Date Provider Last Modified By Organization Details Last Modified Time Details Appointments None recorded. Lab None recorded. Referral None recorded. Procedures injection/a spiration joint/bursa (PROC) 2023 024 [email or web address] In-Office Order, Internal Use Only DO Not Attach Compendium DO Not Attach Compendium, Do Not Delete/merge, [id number] 16:17:57 injection/a spiration joint/bursa (PROC) - in office procedure, administere d by provider 2023 024 [email or web address] In-Office Order, Internal Use Only DO Not Attach Compendium DO Not Attach Compendium, Do Not Delete/merge, [id number] 4 11:28:20 injection/a spiration joint/bursa (PROC) - in office procedure, administere d by provider 2022 023 [email or web address] In-Office Order, Internal Use Only DO Not Attach Compendium DO Not Attach Compendium, Do Not Delete/merge, [id number] 3 12:15:57 injection/a spiration joint/bursa (PROC) - in office procedure, administere d by provider 2022 023 [email or web address] In-Office Order, Internal Use Only DO Not Attach Compendium DO Not Attach Compendium, Do Not Delete/merge, [id number] 3 11:52:32 injection/a spiration joint/bursa (PROC) - in office procedure, administere d by provider 2022 023 [email or web address] In-Office Order, Internal Use Only DO Not Attach Compendium DO Not Attach Compendium, Do Not Delete/merge, 3 11:15:09 Surgeries None recorded. Imaging XR, knee 2022 023 [email or web address] [facility] [place], [facility], [place], [address], 3 12:24:17 Medication Orders bupivacaine HCl 0.5 % (5 mg/mL) injection solution 2023 024 [facility], [address], [place], [id number], 4 15:48:29 Kenalog 10 mg/mL suspension for injection 2023 024 Not available 4 15:48:29 Kenalog 10 mg/mL suspension for injection 2023 024 [email or web address] [facility] #98058, [address], [place], [id number], 4 18:35:44 ropivacaine (PF) 5 mg/mL (0.5 %) injection solution [address] [facility]781, [address] [place] [address], [id number], 4 18:35:44 Kenalog 10 mg/mL suspension for injection [address] [facility]46638, [address] [place] [address], [id number], 3 10:07:11 ropivacaine (PF) 5 mg/mL (0.5 %) injection solution [address] [facility]47223, [address] [place] [address], [id number], 3 10:07:11 Kenalog 10 mg/mL suspension for injection 2022 023 [address] [facility] [address], [address] [place] [address], [id number], 3 15:20:10 ropivacaine (PF) 5 mg/mL (0.5 %) injection solution 2022 023 [address], [address] [place] [address], [id number], 3 15:20:10 Kenalog 10 mg/mL suspension for injection 2022 023 [address] [facility], [address] [place] [address], [id number], 3 10:25:39 ropivacaine (PF) 5 mg/mL (0.5 %) injection solution 2022 023 [email or web address]15448, [address] [place], [place], [id number], 3 10:25:39 Patient TargetsNo targets recorded. Patient InstructionsNo instructions recorded. Reason for Referral None Reported. Results Created Date Observation Date Name Description Value Unit Range Abnormal Flag Note LastModifiedBy Organization Detail LastModifiedTime 01/22/20 23 XR, knee No observ ation record ed. [email or web address] [facility] [place] [address], [place], [address], 01/22/2023 16:16:01 Result Notes None recorded. Problems Name Problem SNOMED Code Status Onset Date Resolution Date Notes Provider Name and Address Organization Details Recorded Time Osteoarthr itis 186431473 Active Not Available [facility] 3 18:36:32 Bilateral osteoarthr itis of knees 3446568900565 07 Active 2022 GENNA Burch, [facility] [email or web address] [facility] 3 11:12:58 Pain of bilateral knee joints 7279875688472 04 Active 2022 GENNA Burch, [employer] [facility] [employer] [facility] 3 11:46:13 Problem Notes None recorded. Procedures Surgical History Date Name Laterality Status Provider Name and Address Organization Details Recorded Time Sinus Surgery completed Not Available [facility] 09/15/2022 18:35:36 Eye Surgery completed Not Available [facility] 09/15/2022 18:35:36 Imaging Results None recorded. Procedure Notes None recorded. Medical Equipment None Reported. Allergies Allergen ID Allergen Name Allergen Category Reaction Reaction Severity Criticality Documentation Date Start Date Code Code System Note Provider Name and Address Organization Details Recorded Time 86036 hydroxyur ea medicatio n Not available Not available Not available 09/15/2022 5552 RxNorm Not Available [facility] 3 18:37:33 51952 allopurin ol medicatio n Not available Not available Not available 09/15/2022 519 RxNorm Not Available [facility] 3 18:37:33 Medications Name Sig Start Date Stop Date Status Note LastModified by Organization Details LastModified Time amoxicillin 500 mg capsule TAKE 1 CAPSULE BY MOUTH EVERY 12 HOURS FOR 7 DAYS 07/22 completed Not Available Not Available Not Available furosemide 40 mg tablet 12/03 completed Not Available Not Available Not Available clotrimazol e 10 mg eduard DISSOLVE 1 EDUARD IN MOUTH 5 TIMES DAILY FOR 14 DAYS 12/25 completed Not Available Not Available Not Available carbidopa ER 25 mg-levodopa 100 mg tablet,exte nded release TAKE 2 TABLETS BY MOUTH DAILY active Not Available Not Available No t Available trazodone 50 mg tablet TK 1 T PO HS 12/03 completed Not Available Not Available Not Available atorvastati n 10 mg tablet TAKE 1 TABLET BY MOUTH EVERY DAY AT BEDTIME active Not Available Not Available No t Available carbidopa 25 mg-levodopa 250 mg tablet 12/03 completed Not Available Not Available Not Available hydrocodone 5 mg-acetamin ophen 325 mg tablet 01/21 completed Not Available Not Available Not Available bupivacaine HCl 0.5 % (5 mg/mL) injection solution in office 2023 active Not Available Not Available Not Avai faisal [facility] Aspirin 81 mg chewable tablet Chew 1 tablet every day by oral route. 2020 active Not Available Not Available Not Avai labnaz venlafaxine ER 150 mg capsule,ext ended release 24 hr 12/03 completed Not Available Not Available Not Available acetaminoph en 300 mg-codeine 30 mg tablet 12/03 completed Not Available Not Available Not Available tramadol 50 mg tablet 12/03 completed Not Available Not Available Not Available pantoprazol e 20 mg tablet,ruben yed release TAKE 1 TABLET BY MOUTH EVERY MORNING active Not Available Not Available No t Available levothyroxi ne 75 mcg tablet TAKE 1 TABLET BY MOUTH DAILY active Not Available Not Available No t Available Kenalog 10 mg/mL suspension for injection in office 2023 active [facility]: 0003- 0494- 20 Not Available Not Available Not Available benzonatate 100 mg capsule TAKE 1 CAPSULE BY MOUTH THREE TIMES DAILY NEEDED FOR COUGH active Not Available Not Available No t Available pantoprazol e 40 mg tablet,ruben yed release TAKE 1 TABLET BY MOUTH EVERY MORNING 12/25 completed Not Available Not Available Not Available Xylocaine 20 mg/mL (2 %) injection solution In office injection administe red by the provider 12/25 completed Not Available Not Available Not Available diclofenac sodium 75 mg tablet,ruben yed release TK 1 T PO BID 12/03 completed Not Available Not Available Not Available furosemide 20 mg tablet 12/03 completed Not Available Not Available Not Available methylpredn isolone 4 mg tablets in a dose pack FOLLOW PACKAGE DIRECTION S 01/21 completed Not Available Not Available Not Available carbidopa 25 mg-levodopa 100 mg tablet TK 2 TS PO QHS 12/03 completed Not Available Not Available Not Available sertraline 50 mg tablet TAKE 1 TABLET BY MOUTH EVERY MORNING active Not Available Not Available No t Available Zetia 10 mg tablet TK 1 T PO D 12/03 completed Not Available Not Available Not Available telmisartan 80 mg-hydrochl orothiazide 25 mg tablet TK 1 T PO Q DAY 12/03 completed Not Available Not Available Not Available Tylenol Extra Strength 2020 active Not Available Not Available Not Avai lable Ocuvite 2020 active Not Available Not Available Not Avai lable lidocaine (PF) 10 mg/mL (1 %) injection solution In office injection administe red by the provider 12/25 completed [facility]: [phone]- [phone]- [phone] Not Available Not Available Not Available lidocaine (PF) 5 mg/mL (0.5 %) injection solution In office injection administe red by the provider 07/23 completed Not Available Not Available Not Available venlafaxine ER 225 mg tablet,exte nded release 24 hr TAKE 1 TABLET BY MOUTH EVERY MORNING active Not Available Not Available No t Available ropivacaine (PF) 5 mg/mL (0.5 %) injection solution in office 2023 active Not Available Not Available Not Avai lable Centrum Silver Women 2020 active Not Available Not Available Not Avai lable Vitals Date Recorded Body height Provider Name an d Address Organization Details Last Updated DateTime 07/22/2023 154.94 cm GENNA Burch [place] [facility] [employer] 07/22/2023 11:26:26 Date Recorded Body height Provider Name an d Address Organization Details Last Updated DateTime 10/22/2022 157.48 cm Yazmin De La Rosa [place] [facility] [email or web address] [facility] 10/22/2022 11:12:26 Date Recorded Body height Provider Name an d Address Organization Details Last Updated DateTime 11/02/2023 154.94 cm Yazmin De La Rosa Gil[place] [facility] 11/02/2023 15:30:25 Date Recorded Body height Body mass index (BMI) Body weight Provider Name and Address Organization Details Last Updated DateTime 01/21/2023 154.94 cm 41.9 kg/m2 675968.[address] De La [address] [facility] [email or web address] [facility] 01/21/2023 11:59:08 Date Recorded Body height Provider Name an d Address Organization Details Last Updated DateTime 04/22/2023 154.94 cm Yazmin De La Rosa [facility] 04/22/2023 12:14:32 Social History None recorded. Functional Status Question Answer Note LastModified by [employer] [facility] Details LastModified Time What is your level of alcohol consumption? Occasional [id number] Information not available 09/15/2022 Mental Status None recorded. Family History Relationship Description Onset Age of this Age Resolved Age Notes LastModified by Organization Details LastModified Time Mother Leukemia [id number] Not available 09/15/2022 18:35:37 Father Family history of stroke Not available 2022 11:44:24 Medical History Condition Response BLINDNESS N KIDNEY STONES N MRSA N CARPAL TUNNEL SYNDROME N LUNG DISEASE/DISORDER N HISTORY OF DRUG ABUSE N RADIATION / CHEMOTHERAPY N COPD Y SPORTS INJURY N ANKLE PAIN N BLOOD DISEASES N SCHIZOPHRENIA N SHINGLES N BOWEL PROBLEMS N SHOULDER PAIN N DEPRESSION (INCLUDING POST ) N STROKE/TIA N KNEE PAIN N ULCERS N BENIGN PROSTATIC HYPERPLASIA N OBESITY N GERD/NAUSEA N ANEURYSM N URINARY/BLADDER/KIDNEY PROBLEMS N CORONARY ARTERY DISEASE (CAD) N ADDICTION CONCERNS N USE OF BLOOD THINNERS N SKIN PROBLEMS N EMPHYSEMA N MUSCLE,JOINT OR BONE PROBLEMS N DVT N STOMACH ULCERS N BLOOD CLOTS N USE OF NSAIDS N CONCUSSION OR SPINAL TRAUMA N NEUROPATHY N AIDS/HIV N FRACTURES N ELBOW PAIN N HYPERTENSION N TOURETTE'S N ANXIETY DISORDER N Metal allergy N BLOOD TRANSFUSION N ANEMIA/BLOOD DISORDER N BIPOLAR DISORDER N BRONCHITIS N OSTEOARTHRITIS N TUBERCULOSIS N FOOT PROBLEM N HEART VALVE DISORDERS N ALLERGIES/HAYFEVER N SOFT TISSUE INJURY N INFECTIOUS DISEASE N HEART ARRHYTHMIA N INSOMNIA N RHEUMATOID ARTHRITIS N HIGH CHOLESTEROL / HYPERLIPIDEMIA N EDEMA N CHRONIC PAIN SYNDROME N CAROTID BLOCKAGE N BACK / NECK PROBLEMS N HAVE YOU BEEN HOSPITALIZED OR SEEN IN [facility] ER IN THE PAST YEAR ? N BURSITIS N HERNIATED DISC N DIALYSIS N FIBROMYALGIA N OSTEOPOROSIS N ARTHRITIS Y NO SIGNIFICANT PAST MEDICAL HISTORY N PERIPHERAL NEUROPATHY N DIABETES, TYPE N HEARTBURN / REFLUX N HEPATITIS / LIVER DISEASE N GOUT N SLEEP DISORDER N ALZHEIMER'S DISEASE N HERPES N SEIZURES/EPILEPSY N HEADACHES/MIGRAINES N VASCULAR DISEASE N HIP PAIN N Blood Disorder N DIZZINESS N HEAD TRAUMA OR INJURY N HEART DISEASE/HEART PROBLEMS N MULTIPLE SCLEROSIS N CARDIAC ARRHYTHMIA N CANCER: SPECIFY N ANESTHESIA COMPLICATIONS N ATRIAL FIBRILLATION N AUTOIMMUNE DISEASE N Gynecological HistoryNo gynecological history recorded. Obstetrics History GPAL:G 0 P 0 0 0 0 Past Encounters Encounter ID Performer Location Encounter Start Date Encounter Closed Date Diagnosis/Indication Diagnosis SNOMED-CT Code Diagnosis ICD10 Code Diagnosis IMO Codes Diagnosis Note [id number] Bill Gunderson MD [facility] [place] [address] [place], [place] [address] 12/12/2020 00:00:00 12/12/2020 13:22:45 [id number] Bill Gunderson MD [facility] [place] [address] [place] [address] 03/09/2021 00:00:00 03/09/2021 16:09:41 [id number] Bill Gunderson MD [facility] [place] [address] [place], [place] [address] 06/08/2021 00:00:00 06/08/2021 15:41:30 [id number] Bill Gunderson MD [facility] [place] [address] [place], [place] [address] 09/25/2021 00:00:00 09/25/2021 11:39:18 [id number] Bill Gunderson MD [facility] [place] [address] [place], [place] [address] 12/25/2021 00:00:00 12/25/2021 12:05:44 [id number] Bill Gunderson MD [facility] [place] [address] [place] [address] 03/26/2022 00:00:00 03/26/2022 11:35:00 [id number] Bill Gunderson MD [facility] [place] [address] [place] [address] 07/23/2022 00:00:00 07/23/2022 12:11:48 [id number] Bill Gunderson MD [facility] [place] [address] [place] [address] 10/22/2022 11:08:25 10/22/2022 11:41:47 Bilateral osteoarthritis of knees [id number] 55835 M17.0 [id number] Bill Gunderson MD [facility] [place] [address] [place] [address] 01/21/2023 11:19:58 01/24/2023 12:24:17 Pain of bilateral knee joints 2443591344 80319 M25.561 M25.829 [id number] Bill Gunderson MD [facility] [place] [address] [place] [address] 04/22/2023 12:11:46 04/22/2023 13:27:54 Bilateral osteoarthritis of knees [id number] 81703 M17.0 [id number] Bill Gunderson MD [facility] [place] [address] [place] [address] 07/22/2023 10:53:38 07/22/2023 11:58:24 Pain of bilateral knee joints 7452649467 01392 M25.561 M25.146 [id number] Harlan Ferrer MD [facility] [place] [address] [place] [address] 11/02/2023 15:26:32 11/02/2023 15:48:53 Bilateral osteoarthritis of knees 5861156489 50488 M17.0 Health Concerns Section Related Observation LastModified by Organization Detai ls LastModified Time None Recorded Concern Status LastModified by Organization Details LastModified Time None Recorded Advance Directives Directive None Recorded Payers Insurance Date Sequence Insurance Name Policy Number Policy Cook Covered Member ID Cook Member ID Guarantor Name 11/07/2023 1 [employer] (MEDICARE REPLACEMENT/ ADVANTAGE - PPO) [id number] Leann Mccauley [id number] Leann Mccauley OBGyn Episode No OBEpisode recorded.
--- OUTSIDE RECORDS SUMMARY | 2025-05-07 17:49 | XMS_ITS | Clinical Summary ---
Author Organization [facility] Address [address] [place] [address] Care Team Providers Care Intraoperative Neuro Tech Name Role Phone Quinten Pruett MD Unavailable [phone] Catia Rowley NP Unavailable [phone] Danita Gonzales MD Primary Care Provider Humble Vee MD Unavailable [phone] Alexis Leon MD Unavailable [phone] Allergies Active Allergy Reactions Criticality Noted Date Comments Allopurinol Unknown 12/09/2022 Hydroxyurea Unknown 12/09/2022 Medications atorvastatin (LIPITOR) 10 mg tablet Take 1 tablet (10 mg total) by mouth nightly at bedtime 3 Active carbidopa-levod opa CR (SINEMET CR) 25-100 mg per CR tablet Take 2 tablets by mouth daily 3 Active levothyroxine (SYNTHROID) 75 mcg tablet Take 1 tablet (75 mcg total) by mouth daily [address] (PROTONIX) 20 mg EC tablet Take 1 tablet (20 mg total) by mouth every morning 3 Active sertraline (ZOLOFT) 50 mg tablet Take 1 tablet (50 mg total) by mouth daily 3 Active venlafaxine 225 mg tablet extended release 24hr 24 hr tablet Take 1 tablet (225 mg total) by mouth daily 3 Active multivit-min/ir on/folic/lutein (CENTRUM SILVER WOMEN ORAL) Centrum Silver Women 1 Active vit C/vit E/lutein/min/om ega-3 (OCUVITE ORAL) Ocuvite 1 Active ROPivacaine (NAROPIN) 5 mg/mL (0.5 %) injection ropivacaine (PF) 5 mg/mL (0.5 %) injection solution in office Active triamcinolone (Kenalog) 10 mg/mL injection Kenalog 10 mg/mL suspension for injection in office Active acetaminophen (TYLENOL EXTRA STRENGTH ORAL) Tylenol Extra Strength 1 Active aspirin ([place] Johann Aspirin) 81 mg chewable tablet daily 1 Active benzonatate (TESSALON) 100 mg capsuleIndicati ons:Cough Take 1 capsule (100 mg total) by mouth 3 (three) times a day as needed for cough Active hydroxyurea (HYDREA) 500 mg capsule Take by mouth daily Active allopurinoL (ZYLOPRIM) 100 mg tablet Take 1 tablet (100 mg total) by mouth daily Active Active Problems Problem Noted Date Diagnosed Date Melanoma of vulva 12/09/2022 Cancer Staging:Pathologic: Unsigned Pathologic:Stage Unknown(pT4b, pNX) - Signed by Alexis Leon MD on 12/15/2022 Osteoarthritis 12/09/2022 Osteoarthritis of both knees 10/22/2022 Hypercalcemia 10/19/2018 12/08/2022 Thrombocytosis 09/18/2018 12/08/2022 Immunizations Immunization Administration Dates Next Due Influenza, Quadrivalent, Split, Intramuscular Pneumococcal Conjugate Pcv20 10/02/2021 Tdap 10/16/2021 ZOSTER Recombinant 03/03/2022,10/12/2021 Surgical History Surgery Date Site/Laterality Comments SINUS SURGERY 07/18/1958 - 07/17/1959 TUBAL LIGATION 07/18/1979 - 07/17/1980 MELANOMA RESECTION 07/18/2022 - 07/17/2023 Medical History Medical History Date Comments Hyperlipidemia Hypothyroidism Osteoporosis Family History Medical History Relation Name Comments No Known Problems Brother Stroke Father Breast cancer Father's Sister Leukemia Mother Relation Name Status Comments Brother Alive Father Father's Sister Mother Sister Alive Social History Tobacco Use Types Packs/Day Years Used Date Smoking Tobacco: Former Cigarettes 1 20 1 965 - 1985 Tobacco Cessation:Counseling Given: Not Answered Personal Safety Answer Date Recorded Getting School Help Needed Not on file 07/16 Comments No Sex and Gender Information Value Date Recorded Sex Assigned at Not on file 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 Gender Identity Not on file Sexual Orientation Not on file Obstetrics History Para Term AB IAB SAB Ectopic Multiple Livin g Live Births 0 0 0 0 0 0 0 0 0 0 0 Last Filed Vital Signs Vital Sign Reading Time Taken Comments Blood Pressure 170/82 01/19/2023 10:07 AM CDT Pulse 90 01/19/2023 10:07 AM CDT Temperature 36.5 C (97.7 F) 01/19/2023 10:07 AM CDT Respiratory Rate 18 01/19/2023 10:07 AM CDT Oxygen Saturation 96% 01/19/2023 10:07 AM CDT Inhaled Oxygen Concentration - - Weight 99.4 kg (219 lb 3.2 oz) 01/19/2023 10:07 AM CDT Height 157 cm (5' 1.81) 01/19/2023 10:07 AM CDT Body Mass Index 40.34 01/19/2023 10:07 AM CDT Plan of Treatment Health Maintenance Due Date Last Done Comments Depression Screening 1945 Fall Risk Assessment 1945 Hepatitis C Screening 1945 Osteoporosis Screening-Bone Density Scan 1945 Hepatitis B Screening 02/28/1964 Well Visit 65+ 2011 Covid-19 Vaccine ( season) 2025 06/29/2021, 10/26/2020, 09/30/2020 Influenza Vaccine (#1) 2025 05/03/2019 DTaP/Tdap/Td Vaccine (2 - Td or Tdap) 10/17/203107/2021 Pneumococcal vaccine 65+ Completed 10/02/2021 Zoster Vaccine Completed 03/03/2022, 10/12/2021 Insurance MEDICARE MEDICARE MEDICARE Care Teams Intraoperative Neuro Tech Relationship Specialty Start Date End Date Danita Gonzales MD [facility] [id number] PCP - General Family Practice 12/14/22 Quinten Pruett MD [address] [facility] [place], [place] [id number] Referring Physician Plastic Surgery 11/16/22 Catia Rowley, JOSELINE [address] [address] Nurse Practitioner 11/16/22 Humble Vee MD [address] [place] [address] [address] [place], [place] [id number] Medical Oncologist/Insurance Risk Analyst Medical Oncology 12/15/22 Alexis Leon MD [address] [place], [place] [id number] Consulting Physician Gynecologic Oncology 12/16/22
--- OUTSIDE RECORDS SUMMARY | 2025-05-07 17:49 | XMS_ITS ---
Author Organization [facility] Address [address] [place] [address] Care Team Providers Care Ssas Developer Name Role Phone Quinten Pruett MD Unavailable [phone] Catia Rowley NP Unavailable [phone] Danita Gonzales MD Primary Care Provider Humble Vee MD Unavailable [phone] Alexis Leon MD Unavailable [phone] Active Problems Problem Noted Date Diagnosed Date Melanoma of vulva 12/09/2022 Cancer Staging:Pathologic: Unsigned Pathologic:Stage Unknown(pT4b, pNX) - Signed by Alexis Leon MD on 12/15/2022 Osteoarthritis 12/09/2022 Osteoarthritis of both knees 10/22/2022 Hypercalcemia 10/19/2018 12/08/2022 Thrombocytosis 09/18/2018 12/08/2022 Current Treatment and Therapy Plans IV Maintenance Therapy Plan* Plan Start Date:02/23/2023 Plan Provider:Humble Vee MD Linked Problems Melanoma of vulva (HCC) Treatment Medications No medications scheduled. Past Treatment and Therapy Plans Oncology Chemotherapy Treatment Plan Name Start Date Discontinue Date Treatment Medications Discontinue Reason Plan Provider Cycles Pembrolizumab 21 Day Cycles 3 01/24/2025 pembrolizumab (KEYTRUDA) Automatic discontinuation of dormant plans Humble Vee MD Treatment not started
== END 2025-05-07 14:13 | disposition home or self-care (01) ==
LOC: ANHFOHIMG 14:13
PROVIDERS: PCP Family Medicine; Visit Provider Nurse Practitioner Family
DX: Z12.31 Encounter for screening mammogram for malignant neoplasm of breast (principal)
CPT/HCPCS: 77063; 77067